=== PATIENT | male | born 1945 | race Caucasian/White ===

== ENCOUNTER 2018-03-02 13:30 | Outpatient (RCR) | payer OTHER, SELFPAY | END 2018-04-26 11:03 | LOC: SP 13:30 | PROVIDERS: Family Provider Internal Medicine; PCP Internal Medicine; Visit Provider Otolaryngology | DX: R49.0 Dysphonia (principal) | CPT/HCPCS: 92507 ==

== ENCOUNTER → 2018-05-10 08:05 | Outpatient (CLI) | payer OTHER, SELFPAY ==
--- NOTE | 2018-05-10 09:20 | P.PCN_ITS ---
Cardiac Stress Test Report Referral & Results Date Patient Seen: 05/10/18 Time Patient Seen: 09:18 Requesting provider: Titi Dumont Rest ECG: Resting ECG shows frequent PVCs and a right bundle branch block pattern Procedure Note: Today following both written and verbal informed consent the patient was exercised according to a standard Sridhar protocol patient went for a total of 6 min 0 sec achieving a maximum heart rate of 142 maximum systolic blood pressure of 240. This is approximately 7.0 METS. Exercise was terminated at this point because of targets having. Patient was also given Cardiolite through a previously started Hep-Lock IV by the certified nuclear medicine technologist approximately 1 minute prior to the cessation of exercise. Patient was hypertensive throughout and somewhat tachycardic. He did hold his metoprolol for 48 hr prior to this test No obvious ST-T segment changes were identified through the baseline right bundle branch block Functional week impairment rated 0 on the sedentary scale Occasional to frequent PACs versus PVCs versus maybe even aberrantly conducted supraventricular beats including couplets and triplets Impression: No clear evidence of ischemia Dysrhythmia as above Perfusion imaging to be reported separately Please note: Actual ECG tracings can be found in the PACS system.
--- NOTE | 2018-05-11 17:43 | DI.NM.S_ITS ---
DATE OF SERVICE: 05/10/2018 ORDERING PHYSICIAN: Titi Dumont M.D. PROCEDURE PERFORMED: Exercise treadmill stress and rest myocardial perfusion imaging with gating to assess ejection fraction and regional wall motion. INDICATIONS: The patient is a 73-year-old male with a history of cerebrovascular disease, palpitations, and lightheadedness. EXERCISE TREADMILL TESTING: The patient was able to exercise for 6 minutes 1 seconds on a standard Sridhar protocol suggesting mild-moderately reduced exercise capacity within JESSICA of +15%. He had a normal heart rate response achieving a maximum heart rate of 142 bpm (97% of his predicted maximum) but a hypertensive blood pressure response with a resting blood pressure of 180/100 increasing to a maximum of 240/90, perhaps due to withholding his beta blockade. He had no chest discomfort or other anginal symptoms. His resting ECG showed sinus rhythm with a right bundle-branch block and left posterior fascicular block but relatively normal ST segments. With exercise, there are no significant ST segment shifts. He has occasion isolated PVCs that no complex ectopy. At 5 minutes of exercise, at a heart rate of 142 bpm, 25.1 mCi of technetium 99 Myoview was injected and the patient was imaged 15 minutes later using a gated SPECT acquisition protocol. He returned the following day and was reinjected with an additional 24.2 mCi of technetium 99 Myoview and was imaged 30 minutes later, again using a gated SPECT acquisition protocol. FINDINGS: 1. Raw Data: There is fair myocardial tracer uptake, although there does appear to be some diaphragmatic attenuation. The lung/heart ratio is normal at 0.31 with a normal TID ratio of 0.81. The right ventricle appears to have more tracer uptake than typical which can be a sign of an underlying right ventricular stress condition. 2. Quantitative Gated SPECT: Post stress ejection fraction is estimated at 75% without any focal wall motion abnormality. The resting ejection fraction is 69% with an end-diastolic volume of 134 mL. 3. Myocardial Perfusion Imaging: Post stress supine images shows a fairly normal myocardial perfusion pattern with mildly reduced tracer activity at the base of the inferior wall in a pattern consistent with diaphragmatic attenuation, supported by its complete resolution on the prone images. There are no other concerning perfusion defects. The resting images show an identical perfusion pattern without any areas of improvement. IMPRESSION: 1. Normal myocardial perfusion study. 2. No evidence for myocardial ischemia or previous myocardial infarction. 3. Normal left ventricular systolic function without any focal wall motion abnormality. Fairly prominent right ventricular tracer uptake could be an indication of a right ventricular overload condition. Clinical correlation is recommended 4. Mild-moderately reduced exercise capacity without angina or ECG evidence of ischemia, although with a notable hypertensive blood pressure response to exercise. He had frequent premature ventricular contractions (PVCs) but no complex arrhythmias. Jairon Tiwari - LISSETT/celina/ab doc#: [id number]/job#: [id number] dd: 05/11/2018 16:00:00 dt: 05/11/2018 17:28:00 DICTATING MD/COPIES TO: Claude Coyne MD; Titi Dumont M.D. COPIES MNE: SAMIR PEREZ
== END ==
PROVIDERS: PCP Internal Medicine; Visit Provider Internal Medicine
DX: I24.9 Acute ischemic heart disease, unspecified (principal); R00.2 Palpitations; R42 Dizziness and giddiness; I49.3 Ventricular premature depolarization
CPT/HCPCS: 78452; 93016; 93017; 93018; A9502

== ENCOUNTER → 2018-11-04 12:08 | Outpatient (CLI) | payer OTHER, SELFPAY ==
--- NOTE | 2018-11-04 | DI.US.S_ITS ---
PROCEDURE: US CAROTID DOPPLER BI INDICATIONS: STENOSIS OF CAROTID RIGHT SHOULDER DYSFUNCTION TECHNIQUE: Color and pulse Doppler interrogation was performed of both carotid systems, with image documentation and velocity measurements. COMPARISON: [facility], , CAROTID ARTERY DOPPLER BILAT, 12/11/2017, 13:03. FINDINGS: Stenosis calculations are based on SRU (Society of Radiologists in Ultrasound) criteria. Right side: Brachial blood pressure: 159/79 mm Hg. Common carotid artery peak systolic velocity: 93 cm/sec. Internal carotid artery peak systolic velocity: 201 cm/sec. Internal carotid artery end diastolic velocity: 51 cm/sec. External carotid artery peak systolic velocity: 124 cm/sec. ICA/CCA peak systolic ratio: 2.2. Jain scale imaging description: Mild scattered plaque. Percent internal carotid artery stenosis: 50-69% stenosis. Vertebral artery: Flow direction is antegrade. Left side: Brachial blood pressure: 151/73 mm Hg. Common carotid artery peak systolic velocity: 102 cm/sec. Internal carotid artery peak systolic velocity: 92 cm/sec. Internal carotid artery end diastolic velocity: 23 cm/sec. External carotid artery peak systolic velocity: 124 cm/sec. ICA/CCA peak systolic ratio: 0.9. Jain scale imaging description: Carotid stent present. Minimal plaque. Percent internal carotid artery stenosis: Less than 50% stenosis. Vertebral artery: Flow direction is antegrade. IMPRESSION: 1. Stable 50-69% right internal carotid artery stenosis. 2. Stable less than 50% left internal carotid artery stenosis. Dictated by: Toni Wilson [facility] Interpreted: Mehreen Rivers MD on 11/04/2018 at 15:34 Approved by: Mehreen Rivers M.D. on 11/04/2018 at 17:46
--- NOTE | 2018-11-04 | DI.MRI.S_ITS ---
PROCEDURE: MR SHOULDER RT WO CON INDICATIONS: STENOSIS OF CAROTID RIGHT SHOULDER DYSFUNCTION TECHNIQUE: Noncontrast oblique coronal T2 fast spin echo with fat saturation, oblique sagittal T1 spin echo and T2 fast spin echo with fat saturation, axial T1 spin echo and T2 fast spin echo with fat saturation through the shoulder. COMPARISON: None. FINDINGS: Image quality: Diagnostic. Rotator cuff: There is no full-thickness or high-grade partial-thickness tear of the rotator cuff. However, there is a focal area of low to moderate grade partial-thickness tearing along the bursal surface of the mid to distal supraspinatus tendon that is positioned approximately 1.5 cm from the insertion (image 13, series 8). Additional areas of bursal surface partial-thickness tearing are noted involving the supraspinatus and infraspinatus tendons with corresponding tendinopathy. There is mild subscapularis tendinopathy. The teres minor tendon is intact. No significant atrophy is evident involving the rotator cuff muscles. Bones and bursae: No acute fracture, dislocation, or suspicious osseous lesion is identified involving the osseous structures of the right shoulder. There may be minimal degenerative changes of the glenohumeral joint. There is a small glenohumeral joint effusion. There are moderate degenerative changes of the acromioclavicular joint with slight downsloping of the lateral acromion. A moderate amount of fluid is contained within the subacromial subdeltoid bursa. Capsule and soft tissues: Evaluation of the labrum and the glenohumeral ligaments is difficult without intra-articular contrast. Slight heterogeneity along the anterior labrum may represent areas of labral tearing, not well characterized. There may be fraying along the free edge of the posterior labrum. The long head of the biceps tendon is normally positioned within the bicipital groove. There is slight increased signal involving its intra-articular course. No acute injuries are suspected of the glenohumeral ligaments. IMPRESSION: 1. Low to moderate grade bursal surface partial-thickness tearing of the distal supraspinatus and infraspinatus tendons with corresponding tendinopathy. 2. Mild subscapularis tendinopathy. 3. Moderate degenerative changes of the acromio clavicular joint with fluid contained within the subacromial subdeltoid bursa. Please correlate clinically for possible subacromial impingement with corresponding bursitis. 4. Mild degenerative changes of the humeral joint with an associated small joint effusion. 5. Heterogeneity of the anterior and superior margins of the labrum may represent subtle labral tears presenting for better characterization utilizing MR arthrography may be determined clinically. Dictated by: Alonso Pabon M.D. on 11/04/2018 at 16:24 Approved by: Alonso Pabon M.D. on 11/04/2018 at 16:28
== END ==
PROVIDERS: Visit Provider Internal Medicine
DX: I65.23 Occlusion and stenosis of bilateral carotid arteries (principal); M75.111 Incomplete rotator cuff tear or rupture of right shoulder, not specified as traumatic; M19.011 Primary osteoarthritis, right shoulder; M25.411 Effusion, right shoulder
CPT/HCPCS: 73221; 93880

== ENCOUNTER → 2019-12-12 13:05 | Outpatient (CLI) | payer OTHER, SELFPAY ==
--- NOTE | 2019-12-12 | DI.US.S_ITS ---
PROCEDURE: US CAROTID DOPPLER BI INDICATIONS: OCCLUSION AND STENOSIS OF UNSECIFIED CAROTID ARTERY TECHNIQUE: Color and pulse Doppler interrogation was performed of both carotid systems, with image documentation and velocity measurements. COMPARISON: [facility], , US CAROTID DOPPLER BI, 11/04/2018, 12:41. FINDINGS: Stenosis calculations are based on SRU (Society of Radiologists in Ultrasound) criteria. Right side: Brachial blood pressure: 130/77 mm Hg. Common carotid artery peak systolic velocity: 110 cm/sec. Internal carotid artery peak systolic velocity: 255 cm/sec. Internal carotid artery end diastolic velocity: 49 cm/sec. External carotid artery peak systolic velocity: 129 cm/sec. ICA/CCA peak systolic ratio: 2.3. Jain scale imaging description: Hyte scanner 5. Percent internal carotid artery stenosis: 70% stenosis to near occlusion. Vertebral artery: Flow direction is antegrade. Left side: Brachial blood pressure: 120/67 mm Hg. Common carotid artery peak systolic velocity: 121 cm/sec. Internal carotid artery peak systolic velocity: 122 cm/sec. Internal carotid artery end diastolic velocity: 31 cm/sec. External carotid artery peak systolic velocity: 139 cm/sec. ICA/CCA peak systolic ratio: 1.0. Jain scale imaging description: Previously placed carotid stent. Percent internal carotid artery stenosis: Less than 50% stenosis. Vertebral artery: Flow direction is antegrade. IMPRESSION: 1. Progressive 70% stenosis to near occlusion right internal carotid artery. 2. Stable less than 50% left internal carotid artery stenosis. Dictated by: Toni Wilson [facility] Interpreted: Jade Bustos MD on 12/12/2019 at 14:33 Approved by: Jade Bustos M.D. on 12/12/2019 at 14:55
== END ==
PROVIDERS: Referring Provider Family Medicine; Visit Provider Family Medicine
DX: I65.23 Occlusion and stenosis of bilateral carotid arteries (principal)
CPT/HCPCS: 93880

== ENCOUNTER → 2023-02-27 11:09 | Outpatient (CLI) | payer OTHER, SELFPAY ==
--- NOTE | 2023-02-27 | DI.MRI.S_ITS ---
PROCEDURE: MR KNEE RT WO CON INDICATIONS: RIGHT KNEE PAIN TECHNIQUE: Noncontrast sagittal PD fast spin echo and T2 fast spin echo with fat saturation, sagittal 3-D FLASH with fat saturation; coronal T1 spin echo and PD fast spin echo with fat saturation, and axial PD fast spin echo with fat saturation through the knee. COMPARISON: [facility], MR, MR FEMUR RIGHT WITHOUT CONTRAST, 04/16/2020, 18:43. [facility], CR, XR KNEE ARTHRITIC SERIES RT, 02/10/2023, 10:09. FINDINGS: Image quality: Excellent. Menisci: There is amorphous and linear oblique high T2 signal intensity traversing the inner, middle, and peripheral thirds of the medial meniscal body and posterior horn, demonstrating inferior articular surface extension, indicating complex tearing. Lateral meniscus is intact. Cruciate ligaments: The anterior and posterior cruciate ligaments appear intact. Medial structures: The medial collateral ligament appears intact. Visualized portions of the pes anserinus tendons appear normal. No abnormal bursal fluid. Lateral structures: The lateral collateral ligament, long and short heads of the biceps femoris tendon appear intact. The popliteus tendon appears normal. Iliotibial band appears normal. Anterior structures: The quadriceps tendon is thickened, and there is metallic artifact at its anterior aspect. There is a small amount of fluid signal intensity within the posterior aspect of the thickened quadriceps tendon at the patellar insertion site. Mild T2 signal elevation within the patellar tendon at the patellar insertion site. Patellar alignment is normal. No femoral trochlear dysplasia or ventral trochlear prominence. No edema in the infrapatellar fat pad. Bones and cartilage: No bone marrow contusions or fractures. Mild tricompartmental periarticular osteophyte formation. Severe articular cartilage loss diffusely overlies the weight-bearing aspects of the medial femoral condyle and medial tibial plateau. Mild articular cartilage loss overlies the lateral patellar facet. Severe articular cartilage loss overlies the medial patellar facet. Joint space: There is a small knee joint effusion and a trace Lemus's cyst. Normal appearing synovial plicae are incidentally noted. IMPRESSION: 1. Presumed postsurgical sequelae involving the quadriceps tendon which demonstrates low-grade tearing. 2. Patellar tendinitis. 3. Complex tearing of the medial meniscus. 4. Knee joint effusion and Lemus's cyst. Dictated by: Jodi Anthony M.D. on 02/27/2023 at 12:39 Approved by: Jodi Anthony M.D. on 02/27/2023 at 12:42
== END ==
PROVIDERS: PCP Internal Medicine; Referring Provider Orthopaedic Surgery; Visit Provider Orthopaedic Surgery
DX: S76.111A Strain of right quadriceps muscle, fascia and tendon, initial encounter (principal); S83.231A Complex tear of medial meniscus, current injury, right knee, initial encounter; M25.461 Effusion, right knee; M76.51 Patellar tendinitis, right knee
CPT/HCPCS: 73721

== ENCOUNTER → 2023-08-21 12:55 | Outpatient (CLI) | payer OTHER, SELFPAY | PROVIDERS: PCP Internal Medicine; Referring Provider Internal Medicine; Visit Provider Internal Medicine | DX: R10.13 Epigastric pain (principal) | CPT/HCPCS: 36415; 82784; 86231; 86258; 86364 ==

== ENCOUNTER → 2023-08-27 09:13 | Outpatient (CLI) | payer OTHER, SELFPAY ==
--- NOTE | 2023-08-27 | DI.NM.S_ITS ---
PROCEDURE: NM MINI PERF SPECT REST & STR Rest and exercise myocardial perfusion SPECT with gated imaging and ejection fraction RADIOPHARMACEUTICAL: 10.6 mCi Tc-99m sestamibi IV at rest and 25.3 mCi Tc-99m sestamibi IV at peak exercise. A [id number] was performed. INDICATIONS: ABNORMAL ECG / MOBIT TYPE 2 SECOND DEGREE AV BLOCK TECHNIQUE: Radiopharmaceutical was injected at peak stress test, and also at rest. SPECT images were obtained. SPECT myocardial perfusion images were displayed in short axis, horizontal long axis, and vertical long axis views. Gated images were reviewed using [employer] software. COMPARISON: None. CARDIAC STRESS: A standard Sridhar treadmill exercise tolerance test was performed by the patient under the supervision of an attending staff. The patient exercised for 6 minutes and 37 seconds; 7.0 METS; functional aerobic impairment (JESSICA) is -19%. Hemodynamic data: There is normal blood pressure and heart rate response to exercise stress. Patient achieved 96% of maximum predicted heart rate at peak exercise. Maximum blood pressure 196/89. Symptoms: Patient denied chest pain during exercise. EKG: No diagnostic EKG changes of ischemia; rare PACs and PVCs. FINDINGS: Raw data: There is good myocardial labeling by radiotracer. No significant motion artifacts. [id number] ratio is 0.29 (normal is less than 0.38 for sestamibi tracer, and less than 0.50 for thallium tracer). Left ventricle function: Gated images demonstrate normal left ventricle wall thickening. No segmental wall motion abnormality. No transient ischemic dilation; TID is 0.88 (normal less than 1.3). The left ventricle resting end-diastolic volume is 114 mL. Left ventricle stress ejection fraction is 69%; normal values are above 45%. Myocardial perfusion: There is normal distribution of activity in the left and right ventricular myocardium. No fixed or reversible perfusion defects. IMPRESSION: Low risk study. No evidence of exercise-induced ischemia on ECG or SPECT imaging. Normal LV size and function. Normal hemodynamic response. Good exercise capacity. Dictated by: Chelly Suazo D.O. on 08/27/2023 at 16:23 Approved by: Chelly Suazo D.O. on 08/27/2023 at 16:27
== END ==
PROVIDERS: PCP Internal Medicine; Referring Provider Internal Medicine Cardiovascular Disease; Visit Provider Internal Medicine Cardiovascular Disease
DX: I44.1 Atrioventricular block, second degree (principal); R94.31 Abnormal electrocardiogram [ECG] [EKG]
CPT/HCPCS: 78452; 93017; A9502